=== PATIENT | male | born 1985 | race Caucasian/White ===

== ENCOUNTER 2016-11-26 15:53 | Emergency (ER) | payer SELFPAY ==
--- NOTE | 2016-11-26 20:52 | ED NURSING NOTES ---
Clinical Report - Nurses [facility] [address] [place] [address] 11/26/2016 15:54 Patient: SASCHA PASCUAL TRIAGE Triage time 15:57 Nov 26 2016. Acuity: LEVEL 2. Chief Complaint: SEIZURE. Alert. MEME COMA SCORE: [place] Coma Scale: 14- eyes open spontaneously (4); best verbal response- disoriented (4); best motor response- obeys commands (6). --16:21 Nely Kay R.N. 15:57 11/26/16. BP: 152/104. HR: 120. RR: 38. O2 saturation: 100%. Temp: 98.3 F. Pain level now 0/10. --16:21 Nely Kay R.N. Weight: 104 kg measured. Height/Length: 72 inches Estimated. BMI: 31.1. --15:56 Nely Kay R.N. Medications Unknown. --16:11 Nely Kay R.N. Medication/allergy information source: EMS. --16:21 Nely Kay R.N. Allergies Unknown. --16:12 Nely Kay R.N. History Arrived by EMS, and ([facility]). Historian: patient. Primary physician (unknown). ( Pt arrives via EMS for witnessed Seizure at home. Witnessed by his . Unknown how long the pt was seizing. Pt arrived to room 2 and was alert to self and location only. While speaking to staff pt started having another seizure. Witness by staff and MD. Pt has a PMH of ETOH Withdrawal Seizures, has been hospitalized for this at [facility] about 1 month ago.). This occurred just prior to arrival. Patient was witnessed to be last known well (1645 pm). Treatment SPECTROGRAPHIC ANALYST: None. PAST MEDICAL HX: Unknown. SOCIAL HX: Heavy alcohol use; consumes wine. (states he has been drinking "a couple bottles of wine daily since the holidays".). History of drug use: heroin. ABUSE ASSESSMENT: Abuse history: reports abuse. --16:21 Nely Kay R.N. PROBLEMS: Substance Abuse. ETOH Seizures. --16:13 Nely Kay R.N. Interventions ID band on patient. To room. --16:21 Nely Kay R.N. PHYSICAL ASSESSMENT To room via stretcher. GENERAL / NEURO / PSYCH: Decreased awareness. The patient appears post-ictal. Meme Coma Scale: 14- eyes open spontaneously (4); best verbal response- disoriented (4); best motor response- obeys commands (6). The patient is disoriented to time. Pupillary exam: Right pupil 4mm and briskly reactive. Left pupil: 4mm and briskly reactive. RESPIRATORY: Respirations not labored. CVS: Cardiac rhythm: sinus tachycardia. Capillary refill less than 2 seconds. SKIN: Skin is warm and dry. --18:24 Nely Kay R.N. GENERAL / NEURO / PSYCH: Alert. The patient is disoriented to situation. Speech within normal limits. HEENT: Pupils equal, round and reactive to light. RESPIRATORY: Respirations not labored. CVS: Capillary refill less than 2 seconds. SKIN: Skin is warm and dry. --20:08 Nely Kay R.N. NURSING PROGRESS NOTES 15:55 11/26/2016 Site #1 started via IV in the right forearm with an 18g angiocath; one attempt. Blood drawn: rainbow set. Labeled in the presence of the patient. Saline lock flushed with 10 mL saline (placed by VICKY Bernardo). --16:24 Nely Kay R.N. ( ER MD in room on pt's arrival. Pt started having a seizure during medical history conversation. Ativan 4 mg IVP given immediately.). --16:24 Nely Kay R.N. Cardiac rhythm: sinus tachycardia. --16:25 Nely Kay R.N. 16:24 11/26/16. BP: 107/67. HR: 127. --16:25 Nely Kay R.N. 15:55 11/26/2016 Ativan (LORazepam) IVP 4 mg given over 1 minute(s) via site #1. IV patency established. IV site checked: no pain, redness, or swelling. IV flushed thoroughly pre- and post-medication administration. IVP given by RN. --16:27 Nely Kay R.N. ( Pt has had urine incontinence. Cleaned up and changed and a depends placed.). --16:28 Nely Kay R.N. 16:28 11/26/16. End tidal CO2: 25mmHg. --16:28 Nely Kay R.N. desk monitor, pulse oximeter, end tidal CO2 monitor and NIBP monitor placed on patient; manager monitoring- Lead II; monitor alarms on. Seizure precautions initiated. --16:29 Nely Kay R.N. 16:33 11/26/2016 Started bag #1 1000 mL IV Fluids IV NS (Saline); at 1000 mL/hr over 1 hour(s) via site #1 via IV pump. Completed per protocol. --16:33 Nely Kay R.N. ( Repositions self onto Right side. IVF still infusing.). --16:53 Nely Kay R.N. 17:13 11/26/2016 Valium (Diazepam) IVP 10 mg given over 3 minute(s) via site #1. IV patency established. IV site checked: no pain, redness, or swelling. IV flushed thoroughly pre- and post-medication administration. IVP given by RN. --17:13 Nely Kay R.N. 17:50 11/26/2016 IV Fluids IV NS Discontinued: bag #1 completed. Total amount infused: 1000 mL. IV patency established. IV site checked: no pain, redness, or swelling. IV flushed thoroughly. --17:50 Nely Kay R.N. 17:51 11/26/2016 Started bag #1 1000 mL IV Fluids IV NS (Saline); at 1000 mL/hr over 1 hour(s) via site #1 via IV pump. Completed per protocol. --17:51 Nely Kay R.N. 18:22 11/26/16. BP: 102/48. HR: 116. RR: 20. O2 saturation: 94%. End tidal CO2: 27mmHg. --18:23 Nely Kay R.N. Cardiac rhythm: sinus tachycardia. --18:23 Nely Kay R.N. The patient is resting quietly and sleeping and has had no adverse reaction. --18:23 Nely Kay R.N. 18:39 11/26/2016 IV Fluids IV NS Discontinued: bag #2 infused. Total amount infused: 2000 mL. IV patency established. IV site checked: no pain, redness, or swelling. IV flushed thoroughly. --18:39 Nely Kay R.N. ( Pt was awakened, asked if he needed to pee, "not yet". Pt repositions self.). --18:41 Nely Kay R.N. 19:56 11/26/2016 Valium (Diazepam) IVP 5 mg given over 2 minute(s) via site #1. Sedative warning given to the patient. IV patency established. IV site checked: no pain, redness, or swelling. IV flushed thoroughly pre- and post-medication administration. IVP given by RN. --19:56 Nely Kay R.N. 19:56 11/26/2016 Started bag #1 1000 mL IV Fluids IV NS (Saline); at 1000 mL/hr over 1 hour(s) via site #1 via IV pump. Completed per protocol. --19:56 Nely Kay R.N. The patient reports no complaints and he is calm and resting quietly. --20:08 Nely Kay R.N. 20:07 11/26/16. HR: 94. --20:08 Nely Kay R.N. ( pt is on room air). --20:08 Nely Kay R.N. 20:08 11/26/16. O2 saturation: 95%. --20:08 Nely Kay R.N. 20:44 11/26/2016 Valium (Diazepam) IVP 5 mg given over 2 minute(s) via site #1. Allergies verified, confirmed 5 rights and sedative warning given to the patient. IV patency established. IV site checked: no pain, redness, or swelling. IV flushed thoroughly pre- and post-medication administration. --20:44 Austyn Hoover R.N. ( pt is awake, alert, called his , attempting to use the urinal with JUAN CARLOS Snell Tech at bedside to assist.). --21:06 Nely Kay R.N. The patient was positioned without assistance up in bed with feet dangled. He tolerated this well. (ASSISTED TO STAND FOR URINAL). Patient ID band checked for patient name: patient confirmed. Clean catch urine collected with return of yellow-colored clear urine; sample sent to lab for urinalysis and drug screen. Specimen labeled in the presence of the patient. --21:12 Mervin Rice ER Intensive Care Medicine Specialist ( Disconnected from all monitoring. pt getting dressed and calling for a ride.). --21:25 Nely Kay R.N. 21:26 11/26/2016 IV Fluids IV NS Discontinued: bag #4 discontinued. Total amount infused: 1400 mL. IV patency established. IV site checked: no pain, redness, or swelling. IV flushed thoroughly. --21:26 Nely Kay R.N. 22:00 11/26/2016 Site #1 removed upon discharge. Pressure dressing applied. --22:09 Nely Kay R.N. DISPOSITION / DISCHARGE Reviewed medication(s). Work note given (work note for to stay home and monitor x 1 day.). --21:28 Nely Kay R.N. Cardiac rhythm: normal sinus rhythm. Condition at departure: improved and stable. --21:32 Nely Kay R.N. 21:32 11/26/16. BP: 124/72. HR: 98. RR: 16. O2 saturation: 95%. Temp: 98.5 F. Pain level now 03/26. --21:32 Nely Kay R.N. Departure time: 22:Nov 26 2016. The patient was discharged by the physician. He was discharged home and accompanied by spouse. He left the Emergency Department in a wheelchair and via private vehicle. Spouse driving. --22:08 Nely Kay R.N. ( GIVEN DISCHARGE INSTRUCTIONS AND PLANS.). --22:08 Nely Kay R.N. Locked/Released at 11/26/2016 22:09 by Nely Kay R.N.
--- NOTE | 2016-11-26 20:52 | ED NURSING NOTES ---
Clinical Report - Nurses [facility] [address] [place] [address] 11/26/2016 15:54 Patient: SASCHA PASCUAL TRIAGE Triage time 15:57 Nov 26 2016. Acuity: LEVEL 2. Chief Complaint: SEIZURE. Alert. MEME COMA SCORE: [place] Coma Scale: 14- eyes open spontaneously (4); best verbal response- disoriented (4); best motor response- obeys commands (6). --16:21 Nely Kay R.N. 15:57 11/26/16. BP: 152/104. HR: 120. RR: 38. O2 saturation: 100%. Temp: 98.3 F. Pain level now 0/10. --16:21 Nely Kay R.N. Weight: 104 kg measured. Height/Length: 72 inches Estimated. BMI: 31.1. --15:56 Nely Kay R.N. Medications Unknown. --16:11 Nely Kay R.N. Medication/allergy information source: EMS. --16:21 Nely Kay R.N. Allergies Unknown. --16:12 Nely Kay R.N. History Arrived by EMS, and ([facility]). Historian: patient. Primary physician (unknown). ( Pt arrives via EMS for witnessed Seizure at home. Witnessed by his . Unknown how long the pt was seizing. Pt arrived to room 2 and was alert to self and location only. While speaking to staff pt started having another seizure. Witness by staff and MD. Pt has a PMH of ETOH Withdrawal Seizures, has been hospitalized for this at [facility] about 1 month ago.). This occurred just prior to arrival. Patient was witnessed to be last known well (1645 pm). Treatment TRAFFIC CONTROLLER CABLE: None. PAST MEDICAL HX: Unknown. SOCIAL HX: Heavy alcohol use; consumes wine. (states he has been drinking "a couple bottles of wine daily since the holidays".). History of drug use: heroin. ABUSE ASSESSMENT: Abuse history: reports abuse. --16:21 Nely Kay R.N. PROBLEMS: Substance Abuse. ETOH Seizures. --16:13 Nely Kay R.N. Interventions ID band on patient. To room. --16:21 Nely Kay R.N. PHYSICAL ASSESSMENT To room via stretcher. GENERAL / NEURO / PSYCH: Decreased awareness. The patient appears post-ictal. Meme Coma Scale: 14- eyes open spontaneously (4); best verbal response- disoriented (4); best motor response- obeys commands (6). The patient is disoriented to time. Pupillary exam: Right pupil 4mm and briskly reactive. Left pupil: 4mm and briskly reactive. RESPIRATORY: Respirations not labored. CVS: Cardiac rhythm: sinus tachycardia. Capillary refill less than 2 seconds. SKIN: Skin is warm and dry. --18:24 Nely Kay R.N. GENERAL / NEURO / PSYCH: Alert. The patient is disoriented to situation. Speech within normal limits. HEENT: Pupils equal, round and reactive to light. RESPIRATORY: Respirations not labored. CVS: Capillary refill less than 2 seconds. SKIN: Skin is warm and dry. --20:08 Nely Kay R.N. NURSING PROGRESS NOTES 15:55 11/26/2016 Site #1 started via IV in the right forearm with an 18g angiocath; one attempt. Blood drawn: rainbow set. Labeled in the presence of the patient. Saline lock flushed with 10 mL saline (placed by VICKY Bernardo). --16:24 Nely Kay R.N. ( ER MD in room on pt's arrival. Pt started having a seizure during medical history conversation. Ativan 4 mg IVP given immediately.). --16:24 Nely Kay R.N. Cardiac rhythm: sinus tachycardia. --16:25 Nely Kay R.N. 16:24 11/26/16. BP: 107/67. HR: 127. --16:25 Nely Kay R.N. 15:55 11/26/2016 Ativan (LORazepam) IVP 4 mg given over 1 minute(s) via site #1. IV patency established. IV site checked: no pain, redness, or swelling. IV flushed thoroughly pre- and post-medication administration. IVP given by RN. --16:27 Nely Kay R.N. ( Pt has had urine incontinence. Cleaned up and changed and a depends placed.). --16:28 Nely Kay R.N. 16:28 11/26/16. End tidal CO2: 25mmHg. --16:28 Nely Kay R.N. applications coordinator, pulse oximeter, end tidal CO2 monitor and NIBP monitor placed on patient; distance learning unit leader- Lead II; monitor alarms on. Seizure precautions initiated. --16:29 Nely Kay R.N. 16:33 11/26/2016 Started bag #1 1000 mL IV Fluids IV NS (Saline); at 1000 mL/hr over 1 hour(s) via site #1 via IV pump. Completed per protocol. --16:33 Nely Kay R.N. ( Repositions self onto Right side. IVF still infusing.). --16:53 Nely Kay R.N. 17:13 11/26/2016 Valium (Diazepam) IVP 10 mg given over 3 minute(s) via site #1. IV patency established. IV site checked: no pain, redness, or swelling. IV flushed thoroughly pre- and post-medication administration. IVP given by RN. --17:13 Nely Kay R.N. 17:50 11/26/2016 IV Fluids IV NS Discontinued: bag #1 completed. Total amount infused: 1000 mL. IV patency established. IV site checked: no pain, redness, or swelling. IV flushed thoroughly. --17:50 Nely Kay R.N. 17:51 11/26/2016 Started bag #1 1000 mL IV Fluids IV NS (Saline); at 1000 mL/hr over 1 hour(s) via site #1 via IV pump. Completed per protocol. --17:51 Nely Kay R.N. 18:22 11/26/16. BP: 102/48. HR: 116. RR: 20. O2 saturation: 94%. End tidal CO2: 27mmHg. --18:23 Nely Kay R.N. Cardiac rhythm: sinus tachycardia. --18:23 Nely Kay R.N. The patient is resting quietly and sleeping and has had no adverse reaction. --18:23 Nely Kay R.N. 18:39 11/26/2016 IV Fluids IV NS Discontinued: bag #2 infused. Total amount infused: 2000 mL. IV patency established. IV site checked: no pain, redness, or swelling. IV flushed thoroughly. --18:39 Nely Kay R.N. ( Pt was awakened, asked if he needed to pee, "not yet". Pt repositions self.). --18:41 Nely Kay R.N. 19:56 11/26/2016 Valium (Diazepam) IVP 5 mg given over 2 minute(s) via site #1. Sedative warning given to the patient. IV patency established. IV site checked: no pain, redness, or swelling. IV flushed thoroughly pre- and post-medication administration. IVP given by RN. --19:56 Nely Kay R.N. 19:56 11/26/2016 Started bag #1 1000 mL IV Fluids IV NS (Saline); at 1000 mL/hr over 1 hour(s) via site #1 via IV pump. Completed per protocol. --19:56 Neyl Kay R.N. The patient reports no complaints and he is calm and resting quietly. --20:08 Nely Kay R.N. 20:07 11/26/16. HR: 94. --20:08 Nely Kay R.N. ( pt is on room air). --20:08 Nely aKy R.N. 20:08 11/26/16. O2 saturation: 95%. --20:08 Nely Kay R.N. 20:44 11/26/2016 Valium (Diazepam) IVP 5 mg given over 2 minute(s) via site #1. Allergies verified, confirmed 5 rights and sedative warning given to the patient. IV patency established. IV site checked: no pain, redness, or swelling. IV flushed thoroughly pre- and post-medication administration. --20:44 Austyn Hoover R.N. ( pt is awake, alert, called his , attempting to use the urinal with JUAN CARLOS Snell Tech at bedside to assist.). --21:06 Nely Kay R.N. The patient was positioned without assistance up in bed with feet dangled. He tolerated this well. (ASSISTED TO STAND FOR URINAL). Patient ID band checked for patient name: patient confirmed. Clean catch urine collected with return of yellow-colored clear urine; sample sent to lab for urinalysis and drug screen. Specimen labeled in the presence of the patient. --21:12 Mervin Rice ER Policy Checker ( Disconnected from all monitoring. pt getting dressed and calling for a ride.). --21:25 Nely Kay R.N. 21:26 11/26/2016 IV Fluids IV NS Discontinued: bag #4 discontinued. Total amount infused: 1400 mL. IV patency established. IV site checked: no pain, redness, or swelling. IV flushed thoroughly. --21:26 Nely Kay R.N. 22:00 11/26/2016 Site #1 removed upon discharge. Pressure dressing applied. --22:09 Nely Kay R.N. DISPOSITION / DISCHARGE Reviewed medication(s). Work note given (work note for to stay home and monitor x 1 day.). --21:28 Nely Kay R.N. Cardiac rhythm: normal sinus rhythm. Condition at departure: improved and stable. --21:32 Nely Kay R.N. 21:32 11/26/16. BP: 124/72. HR: 98. RR: 16. O2 saturation: 95%. Temp: 98.5 F. Pain level now 03/26. --21:32 Nely Kay R.N. Departure time: 22:Nov 26 2016. The patient was discharged by the physician. He was discharged home and accompanied by spouse. He left the Emergency Department in a wheelchair and via private vehicle. Spouse driving. --22:08 Nely Kay R.N. ( GIVEN DISCHARGE INSTRUCTIONS AND PLANS.). --22:08 Nely Kay R.N. Locked/Released at 11/26/2016 22:09 by Nely Kay R.N.
--- NOTE | 2016-11-26 20:52 | ED ORDER SUMMARY ---
..... Patient: SASCHA PASCUAL OrderSheet [facility] VisitID: [id number] [place] [address] 31y, M Registration Date/Time: 11/26/2016 ORDER SHEET Weight: 104 kg (measured) Allergies: Unknown GENERAL ORDERS: Machine Operator Hop Picker (Continuous) (seizures) (15:58 11/26/2016 Nam Paiz) (Ack 16:01 LNations ER Tech1) (16:27 SBalde R.N.) CBC w Diff Urgent (15:59 11/26/2016 Nam Paiz) (Ack 16:01 LNations ER Tech1) (16:27 SBalde R.N.) CMP Urgent (15:59 11/26/2016 Nam Paiz) (Ack 16:01 LNations ER Tech1) (16:27 SBalde R.N.) UA-Culture if indicated Urgent (15:59 11/26/2016 Nam Paiz) (Ack 16:01 LNations ER Tech1) (21:12 Bolt HR ER Mushroom Growing Supervisor) CPK Urgent (15:59 11/26/2016 Nam Paiz) (Ack 16:01 LNations ER Tech1) (16:27 SBalde R.N.) TSH Urgent (15:59 11/26/2016 Nam Paiz) (Ack 16:01 LNations ER Tech1) (16:27 SBalde R.N.) Magnesium Urgent (15:59 11/26/2016 Nam Paiz) (Ack 16:02 LNations ER Tech1) (16:27 SBalde R.N.) Ethyl Alcohol Urgent (15:59 11/26/2016 Nam Paiz) (Ack 16:02 LNations ER Tech1) (16:27 SBalde R.N.) Urine Drug Screen Urgent (15:59 11/26/2016 Nam Paiz) (Ack 16:02 LNations ER Tech1) (21:12 Bolt HR ER Mushroom Growing Supervisor) Pulse oximeter (15:59 11/26/2016 Nam Paiz) (Ack 16:01 LNations ER Tech1) (16:26 SBalde R.N.) Seizure Precautions (15:59 11/26/2016 Nam Paiz) (Ack 16:02 LNations ER Tech1) (16:27 AMALIAalde R.NLindsey) MEDICATION ORDERS: IV FLUIDS: IV NS : initial bolus 1000 mL (1000 mL/hr), then none - for X1 (NOW) (15:58 11/26/2016 Nam Paiz) (16:33 AMALIAaldpeyton R.N.) Ativan IV 4 mg (HIGH ALERT MEDICATION, NOW) (15:58 11/26/2016 Nam Paiz) (16:27 Jeff R.N.) Valium IV 10 mg (HIGH ALERT MEDICATION, NOW) (17:00 11/26/2016 Nam Paiz) (17:13 SBalde R.N.) IV NS : initial bolus 1000 mL (1000 mL/hr), then none - for X1 (NOW) (17:01 11/26/2016 Nam Paiz) (Ack 17:17 SBalde R.N.) (17:51 SBalde R.N.) Valium IV 5 mg (HIGH ALERT MEDICATION, NOW) (19:31 11/26/2016 Nam Paiz) (19:56 SBalde R.N.) IV NS : initial bolus 2 L, then none - for X1 (NOW) (19:31 11/26/2016 Nam Paiz) (19:56 SBalde R.N.) Valium IV 5 mg (HIGH ALERT MEDICATION, NOW) (20:37 11/26/2016 Nam Paiz) (Ack 20:41 JQuivey R.N.) (20:44 JQuivey R.N.) ORDER SHEET NOTES: [Electronically signed by Nely Kay R.N. (22:09 11/26/2016)] [Electronically signed by Bertrand Mkcinnon Dr. (03:19 11/28/2016)] [Electronically locked/signed by Nely Kay R.N. (22:09 11/26/2016)]
--- NOTE | 2016-11-26 20:52 | ED ORDER SUMMARY ---
..... Patient: SASCHA PASCUAL OrderSheet [facility] VisitID: [id number] [place] [address] 31y, M Registration Date/Time: 11/26/2016 ORDER SHEET Weight: 104 kg (measured) Allergies: Unknown GENERAL ORDERS: Firebreak Cutter (Continuous) (seizures) (15:58 11/26/2016 Nam Paiz) (Ack 16:01 LNations ER Tech1) (16:27 SBalde R.N.) CBC w Diff Urgent (15:59 11/26/2016 Nam Paiz) (Ack 16:01 LNations ER Tech1) (16:27 SBalde R.N.) CMP Urgent (15:59 11/26/2016 Nam Paiz) (Ack 16:01 LNations ER Tech1) (16:27 SBalde R.N.) UA-Culture if indicated Urgent (15:59 11/26/2016 Nam Paiz) (Ack 16:01 LNations ER Tech1) (21:12 Cardiovascular Provider [employer] ER Chief Information Security Officer) CPK Urgent (15:59 11/26/2016 Nam Paiz) (Ack 16:01 LNations ER Tech1) (16:27 SBalde R.N.) TSH Urgent (15:59 11/26/2016 Nam Paiz) (Ack 16:01 LNations ER Tech1) (16:27 SBalde R.N.) Magnesium Urgent (15:59 11/26/2016 Nam Paiz) (Ack 16:02 LNations ER Tech1) (16:27 SBalde R.N.) Ethyl Alcohol Urgent (15:59 11/26/2016 Nam Paiz) (Ack 16:02 LNations ER Tech1) (16:27 SBalde R.N.) Urine Drug Screen Urgent (15:59 11/26/2016 Nam Paiz) (Ack 16:02 LNations ER Tech1) (21:12 Cardiovascular Provider [employer] ER Chief Information Security Officer) Pulse oximeter (15:59 11/26/2016 Nam Paiz) (Ack 16:01 LNations ER Tech1) (16:26 SBalde R.N.) Seizure Precautions (15:59 11/26/2016 Nam Paiz) (Ack 16:02 LNations ER Tech1) (16:27 AMALIAalde R.NLindsey) MEDICATION ORDERS: IV FLUIDS: IV NS : initial bolus 1000 mL (1000 mL/hr), then none - for X1 (NOW) (15:58 11/26/2016 Nam Paiz) (16:33 AMALIAaldpeyton R.N.) Ativan IV 4 mg (HIGH ALERT MEDICATION, NOW) (15:58 11/26/2016 Nam Paiz) (16:27 Jeff R.N.) Valium IV 10 mg (HIGH ALERT MEDICATION, NOW) (17:00 11/26/2016 Nam Paiz) (17:13 SBalde R.N.) IV NS : initial bolus 1000 mL (1000 mL/hr), then none - for X1 (NOW) (17:01 11/26/2016 Nam Paiz) (Ack 17:17 SBalde R.N.) (17:51 SBalde R.N.) Valium IV 5 mg (HIGH ALERT MEDICATION, NOW) (19:31 11/26/2016 Nam Paiz) (19:56 SBalde R.N.) IV NS : initial bolus 2 L, then none - for X1 (NOW) (19:31 11/26/2016 Nam Paiz) (19:56 SBalde R.N.) Valium IV 5 mg (HIGH ALERT MEDICATION, NOW) (20:37 11/26/2016 Nam Paiz) (Ack 20:41 JQuivey R.N.) (20:44 JQuivey R.N.) ORDER SHEET NOTES: [Electronically signed by Nely Kay R.N. (22:09 11/26/2016)] [Electronically signed by Bertrand Mckinnon Dr. (03:19 11/28/2016)] [Electronically locked/signed by Nely Kay R.N. (22:09 11/26/2016)]
--- NOTE | 2016-11-26 20:52 | ED CLINICAL REPORT ---
Clinical Report - Physicians/Mid Levels [facility] [address] [place] [address] 11/26/2016 15:54 Patient: SASCHA PASCUAL Arrived- By ambulance. Historian- EMS personnel. HISTORY OF PRESENT ILLNESS Chief Complaint: SINGLE SEIZURE. Patient was last known well (just prior to arrival). This occurred just prior to arrival and today. Is no longer seizing. He has recovered. Not post-ictal in the emergency department. Seizure was witnessed. (significant other). Seizure activity lasted minutes. The patient lost consciousness. Generalized motor activity observed. Post-ictally has been obtunded and had confusion and weakness. No injuries noted. Did not recently change anticonvulsant medication or miss recent dose of anticonvulsant. Has not recently been ill. He has had light alcohol consumption recently (beer). Last drink was less than 24 hours ago. patient with heavy alcohol consumption history. According to EMS, patient has been trying to get off of alcohol. Apparently has history of heart alcohol consumption and is been transitioning from wine now to beer. Similar symptoms previously: Recent medical care: Not recently seen/assessed. REVIEW OF SYSTEMS No fever or chest pain. All systems otherwise negative, except as recorded above. PAST HISTORY See nurses notes. Medications: Unknown. Allergies: Unknown. SOCIAL HISTORY Unable to obtain secondary to patient's condition. FAMILY HISTORY Unable to obtain secondary to patient's condition. ADDITIONAL NOTES The nursing notes have been reviewed. PHYSICAL EXAM Vital Signs: 11/26/2016 15:57 BP: 152/104. HR: 120. RR: 38. O2 saturation: 100%. Temp: 98.3 F. Hypertensive. Oxygen saturation normal. Appearance: Is actively seizing. Patient in severe distress. Eyes: Pupillary exam: Right pupil 4mm and round. Left pupil: 4mm and round. ENT: TM's normal. Moist mucous membranes. Pharynx normal. Neck: Normal inspection. Neck supple. CVS: Tachycardia. Heart sounds normal. Pulses normal. Rhythm normal. Respiratory: No respiratory distress. Breath sounds normal. Abdomen: Soft and nontender. No organomegaly. Back: Normal inspection. Skin: Skin warm and dry. Normal skin color. No rash. Normal skin turgor. Extremities: Extremities exhibit normal ROM. No lower extremity edema. Neuro: Marked, constant, generalized seizure activity is observed. No cerebellar findings. No motor deficit. No sensory deficit. (Gaze deviated to the left). LABS, X-RAYS, AND EKG Laboratory Tests: UA-Culture if indicated: (GAGE: 11/26/2016 21:10) ( [facility] [place] 11/26/2016 21:28) Final results Test Result Flag Units (Reference) URINE COLOR YELLOW URINE APPEARANCE CLEAR URINE GLUCOSE NEGATIVE (NEGATIVE) URINE BILIRUBIN NEGATIVE (NEGATIVE) URINE KETONE TRACE (NEGATIVE) URINE SPECIFIC GRAVITY <= 1.005 L (1.010-1.030) URINE PH 6.0 (5.0-8.0) URINE PROTEIN NEGATIVE (NEGATIVE) URINE UROBILINOGEN 0.2 EU/dL (0.2-1.0) URINE NITRITE NEGATIVE (NEGATIVE) URINE BLOOD TRACE-INTACT (NEGATIVE) URINE LEUK ESTERASE NEGATIVE (NEGATIVE) URINE RBC 3-5 rbc/hpf (0-1) URINE WBC 3-5 wbc/hpf (0-1) URINE EPITHELIAL CELLS 5-10 EPI/hpf (0-5) URINE BACTERIA TRACE (<1+) (NONE SEEN) URINE COMMENT CULT NOT INDICATED URINE CULTURES ARE SET-UP BASED ON THE FOLLOWING CRITERIA:POSITIVE NITRITEPOSITIVE LEUKOCYTE ESTERASEGREATER THAN 10 WHITE BLOOD CELLSMODERATE (2+) OR GREATER BACTERIA CBC w Diff: (GAGE: 11/26/2016 16:00) ( [facility] 11/26/2016 16:17) Final results Test Result Flag Units (Reference) WHITE BLOOD COUNT 17.1 H K/uL (4.5-11.5) RED BLOOD COUNT 5.45 M/uL (4.50-5.90) HEMOGLOBIN 16.3 gm/dL (13.5-17.5) HEMATOCRIT 50.9 % (41.0-53.0) MEAN CELL VOLUME 93 fL (80-100) MEAN CORPUSCULAR HGB 30 pg (26-34) MEAN CORPUSCULAR HGB CONC 32 g/dL (31-37) RED CELL DISTRIBUTION WIDTH 14.1 % (11.6-14.8) PLATELET COUNT 427 H K/uL (150-400) NEUTROPHIL % 84.0 H % (50-75) LYMPH % 7.8 L % (25-40) MONO % 7.7 % (3-14) EOSINOPHIL % 0.3 % (0-4) BASOPHIL % 0.2 % (0-2) Urine Drug Screen: (GAGE: 11/26/2016 21:10) ( MsgRcvd 11/26/2016 21:51) Final results Test Result Flag Units (Reference) AMPHETAMINE/METHAMPHETAMINE NEGATIVE (NEGATIVE) BARBITURATE NEGATIVE (NEGATIVE) BENZODIAZEPINE NEGATIVE (NEGATIVE) CANNABINOID NEGATIVE (NEGATIVE) COCAINE NEGATIVE (NEGATIVE) ECSTASY NEGATIVE (NEGATIVE) METHADONE NEGATIVE (NEGATIVE) OPIATE POSITIVE H (NEGATIVE) The urine drug screen is a qualitative screening test fordrug overdose and abuse. All screen results should beconsidered as presumptive.Drugs screened for are as follows:BenzodiazepinesCocaineAmphetamines/MetamphetaminesTHC (Tetrahydrocannabinol)OpiatesBarbituratesEcstasyMethadonePositive results are unconfirmed. For confirmation, notifythe lab for the specimen to be sent to the reference lab.All confirmations must be performed by a differentmethodology.The ingestion of natural herbal and plant productscontaining Ephedra/Ephedra metabolites can produce in urineone or more substances capable of cross reacting withamphetamine/methamphetamine immunoassays. These testsprovide a preliminary result only. A more specificalternative chemical method must be used to obtain aconfirmed analytical result. CMP: (GAGE: 11/26/2016 16:00) ( MsgRcvd 11/26/2016 17:45) Final results Test Result Flag Units (Reference) GLUCOSE 152 H mg/dL (70-110) BUN 16 mg/dL (7-18) CREATININE 2.8 H mg/dL (0.6-1.3) Estimated GFR 28.62 mL/min Estimated GFR- 34.68 mL/min Note: Persistent reduction over 3 months in eGFR<60 mL/min/1.73 m2 defines CKD. Patients with eGFR values>=60 mL/min/1.73 m2 may also have CKD if evidence ofpersistent proteinuria. Additional information may be foundat www.[email or web address].org. SODIUM 129 L mmol/L (136-145) POTASSIUM 3.3 L mmol/L (3.5-5.1) CHLORIDE 77 L mmol/L (98-107) CARBON DIOXIDE 30 mmol/L (21-32) CALCIUM 10.4 H mg/dL (8.5-10.1) TOTAL PROTEIN 8.3 H g/dL (6.4-8.2) ALBUMIN 4.6 g/dL (3.3-5.0) BILIRUBIN, TOTAL 2.7 H mg/dL (0.0-1.0) ALKALINE PHOSPHATASE 98 U/L (46-116) AST (SGOT) 77 H U/L (15-37) ALT (SGPT) 119 H U/L (12-78) MAGNESIUM 2.9 H mg/dL (1.8-2.4) CPK 437 H U/L (24-260) ETHYL ALCOHOL <3 L mg/dL (3-10) THYROID STIMULATING HORMONE 0.526 uIU/mL (0.34-3.74) CK-MB 1.5 ng/mL (0.5-3.2) %CKMB 0.3 % (0.0-4.0) . PROGRESS AND PROCEDURES Course of Care: the patient is a 31-year-old male with reported history of alcohol dependence and trying to come down off of the alcohol. The patient was brought in because of seizures. All patient was being wheeled in, he was in no acute distress howeverwhen patient was being settled into his bed, patient started to have abrupt generalized [id number] seizure activity. 4 mg of Ativan was ordered immediately. Seizure time approximately lasted 2 minutes. No other acute abdomen allergies noted. Laboratory studies ordered. Seizure precautionsinitiated. Patient will be evaluated for signs of worsening condition as well as metabolic derangements as a result of his seizure activity or any other cause for his seizures. Likely alcohol withdrawal type seizure. Workup shows patient with mild electrolyte abnormalities as well as mild rhabdomyolysis. Patient did not have any further seizure activity. Patient is still tachycardic on examination. Patient is sleepy and likely postictal. IV hydration provided. we'll continue to monitor. If patient does not respond appropriately and recover Row[place] a seizurepatient would normally recover, will consider obtaining CT scan of the head. No signs of trauma or reported trauma. Do not feel further imaging is warranted at this time. We'll monitor patient closely. During patient's stay here in the emergency department, patient required several doses of Valium. With each dose of Valium, patient's tachycardia gradually improved. In addition to the Valium, patient also received Several boluses of IV fluids for hydration purposes. This also seemed to improve patient's tachycardia. Patient was able to produce a urine sample after several liters of IV fluids were given. Do not feel patient needs to be admitted to the hospital for mild rhabdomyolysis. Patient is alert and oriented now. Patient is appropriate. No neurological deficits noted. Tachycardia is improved. Because the patient is making urine and is able to tolerate by mouth, do not feel patient needs to admitted to the hospital. Had discussion with patient in regards to his substance abuse. Encourage patient to seek help with His alcoholism. Prescription for Valium provided for any furthersymptoms of withdrawal howeverbecause of the benzodiazepines provided in the emergency department, will likely not need them. Do not feel patient is at risk for delirium tremens. Patient is resting in bed and in no acute distress. No tremor noted on examination. No signs of autonomic instability. Patient is a good outpatient candidate. Do not feel patient needs to be admitted to the hospitalrgency department evaluation. Discussed with patient workup, diagnosis, home care, follow-up, and return precautions. All questions answered. Patient expressed understanding of these instructions and was agreeable to them. Critical care performed (65 minutes). Time is exclusive of separately billable procedures. Time includes: direct patient care, patient reassessment, coordination of patient care, review of patient's medical records, medical consultation and documentation of patient care. CLINICAL IMPRESSION 11/26/2016 20:08 O2 saturation: 95%. 11/26/2016 20:08 HR: 94. Generalized seizure associated with alcohol use. (acute). Blood pressure normal. Oxygen saturation normal. Mild nontraumatic rhabdomyolysis Alcohol withdrawal (acute). Mild hyponatremia (acute). INSTRUCTIONS (Please follow up with alcoholics anonymous). Warnings: GENERAL WARNINGS: Return or contact your physician immediately if your condition worsens or changes unexpectedly, if not improving as expected, or if other problems arise. Specifically return if pain, vomiting, bleeding, breathing difficulty or fever. return of symptoms, worsening condition, or other concerns. Your Current Medications: CONTINUE TAKING THE FOLLOWING MEDICATIONS: Unknown*. Prescription Medications: Valium 5 mg: take 1 orally every 12 hours. Dispense five (5). No refill. Substitution is permissible. (PRN withdrawal symptoms. Do NOT mix with alcohol) Follow-up: Return to the emergency department as needed. Follow up with your doctor in three days. Reason for referral: recheck today's concerns. Summary of care provided to patient via paper. Screening today revealed the patient's blood pressure to be in the normal range. The patient should follow up with a primary care provider for blood pressure management. Understanding of the discharge instructions verbalized by patient. (Electronically signed by Bertrand Mckinnon Dr. 11/28/2016 3:19)
--- NOTE | 2016-11-28 03:19 | ED DISCHARGE INSTRUCTIONS ---
Patient: SASCHA PASCUAL General Instructions [facility] VisitID: [id number] [place] [address] 31y, M Registration Date/Time: 11/26/2016 11/26/2016 20:08 O2 saturation: 95%. 11/26/2016 20:08 HR: 94. Generalized seizure associated with alcohol use. (acute). Blood pressure normal. Oxygen saturation normal. Mild nontraumatic rhabdomyolysis Alcohol withdrawal (acute). Mild hyponatremia (acute). INSTRUCTIONS (Please follow up with alcoholics anonymous). Warnings: GENERAL WARNINGS: Return or contact your physician immediately if your condition worsens or changes unexpectedly, if not improving as expected, or if other problems arise. Specifically return if pain, vomiting, bleeding, breathing difficulty or fever. return of symptoms, worsening condition, or other concerns. Your Current Medications: CONTINUE TAKING THE FOLLOWING MEDICATIONS: Unknown*. Prescription Medications: Valium 5 mg: take 1 orally every 12 hours. Dispense five (5). No refill. Substitution is permissible. (PRN withdrawal symptoms. Do NOT mix with alcohol) Follow-up: Return to the emergency department as needed. Follow up with your doctor in three days. Reason for referral: recheck today's concerns. Summary of care provided to patient via paper. Screening today revealed the patient's blood pressure to be in the normal range. The patient should follow up with a primary care provider for blood pressure management. Understanding of the discharge instructions verbalized by patient. ADDITIONAL INFORMATION Alcohol Withdrawal Seizure You have had a seizure today due to alcohol withdrawal.This occurs when you have been drinking steadily for at least several days, and your body gets used to the effect of alcohol.When you suddenly stop drinking (or, even just cut down your daily intake but continue to drink), you may develop withdrawal symptoms, also called the shakes or DTs. The usual symptoms of alcohol withdrawal last 3 to 4 days and include nervousness, shakiness, nausea, sweating, and sleeplessness.In severe cases hallucinations (seeing things that are not there) and seizures can occur. Standard seizure medicines may not prevent alcohol withdrawal seizures. Sedative medicines such as Ativan, Librium and Valium are more helpful. Home Care: You will need plenty of rest and fluids over the next several days. Eat regular meals.Do not drink any more alcohol.During this time, it is best that you stay with family or friends who can help and support you. You can also admit yourself to an outpatient, inpatient, or residential detox program. Do not drive until all symptoms are gone and you are feeling better. If you were given sedative medication to reduce your symptoms, do not take it more often than prescribed and never take it with alcohol. Heavy regular drinking combined with poor nutrition can lead to a thiamine deficiency and cause permanent brain damage.If you are unable to stop drinking, it is important that you take daily vitamins. Follow Up: Once you have gone through the withdrawal symptoms, you have fought half of the bragg. To avoid the risk of returning to your previous drinking pattern, it is essential that you get follow-up support and treatment. These resources can help you: Alcoholics Anonymous offers support through a self-help fellowship www.aa.org [employer] offers support to families of alcohol users 845-909-4017 www.al-anon.org National [employer] on Alcoholism and Drug Dependence 808-454-9334 www.ncadd.org Search the Internet or check your phonebook for Drug Abuse & Treatment Centers. Return Promptly or contact your doctor if any of the following occurs: Severe shakiness Hallucinations Another seizure Fever of 100.4F (38.0C) or higher Headache, confusion, extreme drowsiness, inability to awaken Increasing upper abdominal pain Repeated vomiting or vomiting blood Rhabdomyolysis Rhabdomyolysis (RM) is the breakdown of muscle tissue. When this occurs there is a release of toxic substances into the blood stream. The most common cause for this condition is injury to the muscle from trauma. The trauma may be due to a blunt injury (car and bike accidents, falls), electrical shock or boswell. Lying in one position for a long time (for example, unconscious from a drug or alcohol overdose), strenuous exertion (such as running a marathon), seizures and use of certain prescribed and recreational drugs can also cause RM. Severe RM can be fatal. It can cause fatal changes in body function including: Kidney failure Abnormalheart rhythm that can be fatal Excess bleeding due to changes in the bloods ability to form a clot Severe RM is a medical emergency and is treated in the hospital with large amounts of IV fluids to flush the toxins out of the body. Mild cases of RM may be treated in the emergency department and followed closely with a repeat exam and blood tests the next day. Home Care Rest for the next 24 hours. Avoid any strenuous activity. Drink extra fluids to stay well hydrated and to continue flushing toxins out of your system. Unless told otherwise, drink 3 quarts of clear fluids over the next 24 hours. You may use acetaminophen (Tylenol) or ibuprofen (Motrin, Advil) to control pain, unless another medicine was prescribed. [NOTE: If you have chronic liver or kidney disease or ever had a stomach ulcer or GI bleeding, talk with your doctor before using these medicines.] Follow Up with this facility, your doctor or as advised by our staff. Get Prompt Medical Attention if any of the following occur: Palpitations (rapid or irregular heartbeat) Dizziness, weakness or fainting Tea- or cola-colored urine or decreased urination Swelling, pain or numbness in the arm or leg muscles Recurrent Seizure [Adult] You have had another seizure today. A common cause of recurrent seizure is missing doses of the seizure medicine. However, sometimes seizures are difficult to control even when you take the medicine correctly. If this is the case for you, it may be necessary to increase your dosage or add or change to another medicine. Home Care: For This Seizure: Since seizures are not predictable, you must avoid doing anything that might cause danger to you or others if you have another one. Therefore, until the seizures are under good control, take these precautions: Do not drive a car, bicycle or motorcycle Do not operate dangerous equipment such as power tools Use a shower instead of a bath Do not swim or climb (ladders, trees, roofs) Tell your close friends and relatives about your seizure and teach them what to do for you if it happens again. If you were prescribed a medicine to prevent seizures, take it exactly as directed. It does not work when taken on an "as needed" basis. Missing doses will increase the risk of having another seizure. If you miss a dose, take the missed dose as soon as you remember. If it is almost time for your next dose, skip the missed dose. Restart the medicine at your next scheduled time. Do not take extra medicine to make up the missed dose. Wear a "Medic-Alert" bracelet to advise emergency personnel of your condition. For Future Seizures: If You Are Alone: If you feel a seizure coming on, the best thing to do is to lie down on a bed or on the floor. Lie on your side, not on your back. This will prevent falling, promote drainage of oral secretions out of the mouth and prevent choking. Be sure that you are clear of any objects that might injure you during the seizure. Call for help if there is time. If Someone Is With You: If someone is with you before the seizure, they should help you get in a safe position and call for help. They should not try to force anything in your mouth once the seizure has begun. Doing this may cause injury. Follow Up with your doctor, or as directed by our staff. NOTE: For the safety of yourself and others on the road, certain states require that the treating doctor inform the Public Health Department of any adult who is treated for a seizure and is at risk of further seizures. In this case, the Department of [employer] (DMV) will be notified and a restriction will be placed on your drivers license until a doctor gives you medical clearance to drive again. Contact your treating doctor to find out if your state requires the reporting of patients with a seizures condition. Get Prompt Medical Attention if any of the following occur: Seizures occurring more often or becoming longer than usual Seizure lasting over 5 minutes No wake-up between seizures Remaining confused for more than 30 minutes after a seizure Injury during a seizure Fever over 100.4F (38.0C) Unusual irritability, drowsiness or confusion Stiff or painful neck Worsening headache Hyponatremia Hyponatremia means low sodium levels in the blood. This condition most often occurs after prolonged vomiting or diarrhea. It can also result from the use of diuretics (water pills) or drinking excess amounts of water. Mild hyponatremia causes no symptoms. It is only discovered with a blood test. As sodium levels in the blood decreases, symptoms begin to appear. This includes weakness, confusion, muscle cramping and seizures. Home Care: 1) Reduce your daily water intake until the problem is corrected. 2) If you have been taking diuretics, you may be asked to stop taking them for a short time. 3) If you are having symptoms of weakness or confusion, do not drive or operate dangerous machinery until symptoms resolve. Follow Up with your doctor for a repeat blood test within the next week unless told otherwise. Get Prompt Medical Attention if any of the following occur: -- Increasing weakness -- Dizziness -- Irregular heartbeat, extra beats or very fast heart rate -- Fainting spell Diazepam Oral tablet What is this medicine? DIAZEPAM (dye AZ e carissa) is a benzodiazepine. It is used to treat anxiety and nervousness. It also can help treat alcohol withdrawal, relax muscles, and treat certain types of seizures. How should I use this medicine? Take this medicine by mouth with a glass of water. Follow the directions on the prescription label. If this medicine upsets your stomach, take it with food or milk. Take your doses at regular intervals. Do not take your medicine more often than directed. If you have been taking this medicine regularly for some time, do not suddenly stop taking it. You must gradually reduce the dose or you may get severe side effects. Ask your doctor or health career developer for advice. Even after you stop taking this medicine it can still affect your body for several days. Talk to your jacquard loom heddles tier regarding the use of this medicine in children. Special care may be needed. What side effects may I notice from receiving this medicine? Side effects that you should report to your doctor or health career developer as soon as possible: allergic reactions like skin rash, itching or hives, swelling of the face, lips, or tongue angry, confused, depressed, other mood changes breathing problems feeling faint or lightheaded, falls muscle cramps problems with balance, talking, walking restlessness tremors trouble passing urine or change in the amount of urine unusually weak or tired Side effects that usually do not require medical attention (report to your doctor or health career developer if they continue or are bothersome): difficulty sleeping, nightmares dizziness, drowsiness, clumsiness, or unsteadiness, a hangover effect headache nausea, vomiting What may interact with this medicine? cimetidine grapefruit juice herbal or dietary supplements like kava kava, melatonin, [place]'s Wort, or valerian medicines for anxiety or sleeping problems, like alprazolam, lorazepam, or triazolam medicines for depression, mental problems or psychiatric disturbances medicines for HIV infection or AIDS prescription pain medicines rifampin, rifapentine, or rifabutin some medicines for seizures like carbamazepine, phenobarbital, phenytoin, or primidone What if I miss a dose? If you miss a dose, take it as soon as you can. If it is almost time for your next dose, take only that dose. Do not take double or extra doses. Where should I keep my medicine? Keep out of the reach of children. This medicine can be abused. Keep your medicine in a safe place to protect it from theft. Do not share this medicine with anyone. Selling or giving away this medicine is dangerous and against the law. Store at room temperature between 15 and 30 degrees C (59 and 86 degrees F). Protect from light. Keep container tightly closed. Throw away any unused medicine after the expiration date. What should I tell my health care provider before I take this medicine? They need to know if you have any of these conditions an alcohol or drug abuse problem bipolar disorder, depression, psychosis or other mental health condition glaucoma kidney or liver disease lung or breathing disease myasthenia gravis Parkinson's disease seizures or a history of seizures suicidal thoughts an unusual or allergic reaction to diazepam, other benzodiazepines, foods, dyes, or preservatives or trying to get breast-feeding What should I watch for while using this medicine? Visit your doctor or health career developer for regular checks on your progress. Your body can become dependent on this medicine. Ask your doctor or health career developer if you still need to take it. You may get drowsy or dizzy. Do not drive, use machinery, or do anything that needs mental alertness until you know how this medicine affects you. To reduce the risk of dizzy and fainting spells, do not stand or sit up quickly, especially if you are an older patient. Alcohol may increase dizziness and drowsiness. Avoid alcoholic drinks. Do not treat yourself for coughs, colds or allergies without asking your doctor or health career developer for advice. Some ingredients can increase possible side effects. You have been given the following additional information: Alcohol Withdrawal Seizure Rhabdomyolysis Seizure, Recurrent [Adult] Hyponatremia Diazepam Oral tablet (Electronically signed by Bertrand Mckinnon Dr. 11/28/2016 3:19)
--- NOTE | 2016-11-28 03:19 | ED MED RECONCILIATION SUMMARY ---
Patient: SASCHA PASCUAL Medication Reconciliation Report [facility] VisitID: [id number] [place] [address] 31y, M Registration Date/Time: 11/26/2016 Weight: 104 kg Height/Length: 72 in. BMI: 31.1 ALLERGIES: Unknown The patient's Home Medications are listed below: Unknown. The source(s) of the original Home Medication information: EMS The following Medications were given to the patient in the Emergency Department: Ativan [IVP] IVP 4 mg, administered: 11/26/2016 3:55:00 PM IV NS IV Fluids bolus 0, then 1000 mL/hr, administered: 11/26/2016 4:33:00 PM Valium [IVP] IVP 10 mg, administered: 11/26/2016 5:13:00 PM IV NS IV Fluids bolus 0, then 1000 mL/hr, administered: 11/26/2016 5:51:00 PM Valium [IVP] IVP 5 mg, administered: 11/26/2016 7:56:00 PM IV NS IV Fluids bolus 0, then 1000 mL/hr, administered: 11/26/2016 7:56:00 PM Valium [IVP] IVP 5 mg, administered: 11/26/2016 8:44:00 PM The following Medications were prescribed to the patient: Valium 5 mg: take 1 orally every 12 hours. Dispense five (5). No refill. Substitution is permissible.(PRN withdrawal symptoms. Do NOT mix with alcohol) -- Bertrand Mckinnon Dr.
--- NOTE | 2016-11-28 03:19 | ED MED RECONCILIATION SUMMARY ---
Patient: SASCHA PASCUAL Medication Reconciliation Report [facility] VisitID: [id number] [place] [address] 31y, M Registration Date/Time: 11/26/2016 Weight: 104 kg Height/Length: 72 in. BMI: 31.1 ALLERGIES: Unknown The patient's Home Medications are listed below: Unknown. The source(s) of the original Home Medication information: EMS The following Medications were given to the patient in the Emergency Department: Ativan [IVP] IVP 4 mg, administered: 11/26/2016 3:55:00 PM IV NS IV Fluids bolus 0, then 1000 mL/hr, administered: 11/26/2016 4:33:00 PM Valium [IVP] IVP 10 mg, administered: 11/26/2016 5:13:00 PM IV NS IV Fluids bolus 0, then 1000 mL/hr, administered: 11/26/2016 5:51:00 PM Valium [IVP] IVP 5 mg, administered: 11/26/2016 7:56:00 PM IV NS IV Fluids bolus 0, then 1000 mL/hr, administered: 11/26/2016 7:56:00 PM Valium [IVP] IVP 5 mg, administered: 11/26/2016 8:44:00 PM The following Medications were prescribed to the patient: Valium 5 mg: take 1 orally every 12 hours. Dispense five (5). No refill. Substitution is permissible.(PRN withdrawal symptoms. Do NOT mix with alcohol) -- Bertrand Mckinnon Dr.
--- NOTE | 2016-11-28 03:19 | ED MAR SUMMARY ---
..... Medication Administration Record [facility] [address] [place] [address] Patient: SASCHA PASCUAL Visit ID: [id number] 31y, M Weight: 104.0 kg Height/Length: 72 in BMI: 31.1 ALLERGIES: Unknown Given 15:55 11/26/2016 Nely Kay R.N. Medication Administered: ATIVAN [IVP] (LORAZEPAM), Dose: 4 mg IVP over 1 minute(s), Site: #1 right forearm. Medication Ordered: Ativan IV 4 mg (HIGH ALERT MEDICATION, NOW). Start 16:33 11/26/2016 Nely Kay R.N., Stop 17:50 11/26/2016 Nely Kay R.N. Medication Administered: IV NS (SALINE), Dose: IV Fluids over 1 hour(s), Rate: 1000 mL/hr, Dispensed: 1000 mL bag, Site: #1 right forearm. Medication Ordered: IV NS : initial bolus 1000 mL (1000 mL/hr), then none - for X1 (NOW). Given 17:13 11/26/2016 Nely Kay R.N. Medication Administered: VALIUM [IVP] (DIAZEPAM), Dose: 10 mg IVP over 3 minute(s), Site: #1 right forearm. Medication Ordered: Valium IV 10 mg (HIGH ALERT MEDICATION, NOW). Start 17:51 11/26/2016 Nely Kay R.N., Stop 18:39 11/26/2016 Nely Kay R.N. Medication Administered: IV NS (SALINE), Dose: IV Fluids over 1 hour(s), Rate: 1000 mL/hr, Dispensed: 1000 mL bag, Site: #1 right forearm. Medication Ordered: IV NS : initial bolus 1000 mL (1000 mL/hr), then none - for X1 (NOW). Given 19:56 11/26/2016 Nely Kay R.N. Medication Administered: VALIUM [IVP] (DIAZEPAM), Dose: 5 mg IVP over 2 minute(s), Site: #1 right forearm. Medication Ordered: Valium IV 5 mg (HIGH ALERT MEDICATION, NOW). Start 19:56 11/26/2016 Nely Kay RLindseyN., Stop 21:26 11/26/2016 Nely Kay R.N. Medication Administered: IV NS (SALINE), Dose: IV Fluids over 1 hour(s), Rate: 1000 mL/hr, Dispensed: 1000 mL bag, Site: #1 right forearm. Medication Ordered: IV NS : initial bolus 2 L, then none - for X1 (NOW). Given 20:44 11/26/2016 Austyn Hoover RLindseyN. Medication Administered: VALIUM [IVP] (DIAZEPAM), Dose: 5 mg IVP over 2 minute(s), Site: #1 right forearm. Medication Ordered: Valium IV 5 mg (HIGH ALERT MEDICATION, NOW).
--- NOTE | 2016-11-28 03:19 | ED MAR SUMMARY ---
..... Medication Administration Record [facility] [address] [place] [address] Patient: SASCHA PASCUAL Visit ID: [id number] 31y, M Weight: 104.0 kg Height/Length: 72 in BMI: 31.1 ALLERGIES: Unknown Given 15:55 11/26/2016 Nely Kay R.N. Medication Administered: ATIVAN [IVP] (LORAZEPAM), Dose: 4 mg IVP over 1 minute(s), Site: #1 right forearm. Medication Ordered: Ativan IV 4 mg (HIGH ALERT MEDICATION, NOW). Start 16:33 11/26/2016 Nely Kay R.N., Stop 17:50 11/26/2016 Nely Kay R.N. Medication Administered: IV NS (SALINE), Dose: IV Fluids over 1 hour(s), Rate: 1000 mL/hr, Dispensed: 1000 mL bag, Site: #1 right forearm. Medication Ordered: IV NS : initial bolus 1000 mL (1000 mL/hr), then none - for X1 (NOW). Given 17:13 11/26/2016 Nely Kay R.N. Medication Administered: VALIUM [IVP] (DIAZEPAM), Dose: 10 mg IVP over 3 minute(s), Site: #1 right forearm. Medication Ordered: Valium IV 10 mg (HIGH ALERT MEDICATION, NOW). Start 17:51 11/26/2016 Nely Kay R.N., Stop 18:39 11/26/2016 Nely Kay R.N. Medication Administered: IV NS (SALINE), Dose: IV Fluids over 1 hour(s), Rate: 1000 mL/hr, Dispensed: 1000 mL bag, Site: #1 right forearm. Medication Ordered: IV NS : initial bolus 1000 mL (1000 mL/hr), then none - for X1 (NOW). Given 19:56 11/26/2016 Nely Kay R.N. Medication Administered: VALIUM [IVP] (DIAZEPAM), Dose: 5 mg IVP over 2 minute(s), Site: #1 right forearm. Medication Ordered: Valium IV 5 mg (HIGH ALERT MEDICATION, NOW). Start 19:56 11/26/2016 Nely Kay RLindseyN., Stop 21:26 11/26/2016 Nely Kay R.N. Medication Administered: IV NS (SALINE), Dose: IV Fluids over 1 hour(s), Rate: 1000 mL/hr, Dispensed: 1000 mL bag, Site: #1 right forearm. Medication Ordered: IV NS : initial bolus 2 L, then none - for X1 (NOW). Given 20:44 11/26/2016 Austyn Hoover RLindseyN. Medication Administered: VALIUM [IVP] (DIAZEPAM), Dose: 5 mg IVP over 2 minute(s), Site: #1 right forearm. Medication Ordered: Valium IV 5 mg (HIGH ALERT MEDICATION, NOW).
== END 2016-11-26 22:15 | disposition home or self-care (01) ==
LOC: ED SRH 15:53
DX: G40.509 Epileptic seizures related to external causes, not intractable, without status epilepticus (principal); M62.82 Rhabdomyolysis; E87.1 Hypo-osmolality and hyponatremia; F10.239 Alcohol dependence with withdrawal, unspecified
CPT/HCPCS: 83526; 90004; 90100; 90617; 92010; 92610; 92720; 92760; 92761; 92762; 92763; 92764; 92765; 92766; 92767; 93140; 95059